=== PATIENT | female | born 1995 | race Two or more races ===

== ENCOUNTER 2018-09-17 20:49 | Emergency (ER) | payer SELFPAY ==
[~2018-09-17] VITALS: Ht 167.6 cm; Wt 63.5 kg
[2018-09-17] MEDS ORDERED: MIDAZOLAM HCL 5 MG/5ML VIAL IV ONE (21:00)
[2018-09-17] MEDS ORDERED: FENTANYL PF 100MCG/2ML AMPUL IV ONE (21:00)
--- NOTE | 2018-09-17 21:00 | NUR ---
PT MAE C/C CANT CLOSE MOUTH S/P YAWNING 15 MIN AGO. PT AOX4. MOUTH OPEN AND UNABLE TO VLOSE. PT ON MONITOR IN BED 3 WITH FRIEND AT BEDSIDE. WILL COTNINUE TO MONITOR.
[2018-09-17] MEDS ORDERED: FENTANYL PF 100MCG/2ML AMPUL ONE (21:24)
--- NOTE | 2018-09-17 21:25 | NUR ---
PT TAKEN TO RADIOLOGY VIA WHEELCHAIR
[2018-09-17] MEDS ORDERED: MIDAZOLAM 50 MG/10 ML VIAL ONE (21:29)
[2018-09-17 21:59] VITALS: BP 131/80
--- NOTE | 2018-09-17 22:36 | NUR ---
IV removed. Catheter intact and site benign. Pressure and 4x4 applied to site. No bleeding noted.Patient discharged to home in stable condition. Written and verbal after care instructions given. Patient verbalizes understanding of instruction. PT AMBUALTORY WITH STEADY GAIT ACCOMPANIED BY FAMILY.
== END 2018-09-17 22:36 | disposition home or self-care (01) ==
LOC: ER 20:49
DX: S03.00XA Dislocation of jaw, unspecified side, initial encounter (principal); X58.XXXA Exposure to other specified factors, initial encounter; Y93.89 Activity, other specified; Y92.89 Other specified places as the place of occurrence of the external cause; Y99.8 Other external cause status
CPT/HCPCS: 21480; 70110; 99284; J2250; J3010

== ENCOUNTER 2020-03-16 23:20 | Emergency (ER) | payer OTHER ==
[~2020-03-16] VITALS: Ht 167.6 cm; Wt 63.5 kg
--- NOTE | 2020-03-16 23:29 | NUR ---
PT AAOX4. AMBULATORY WITH STEADY GAIT. BIBSELF C/O GEN ABD PAIN X2 WEEKS. PT STATED SHE TESTED POSITIVE FOR COVID X3 WEEKS AGO. DURING COVID SHE HAD THE SAME GEN ABD PAIN. STATED 5/10 PAIN NOW AND "IT WILL GET WORSE AT 3 AM, SO I WANTED TO BE CHECKED OUT NOW"
--- NOTE | 2020-03-16 23:59 | NUR ---
URINE COLLECTED, SENT TO LAB.
[2020-03-17] MEDS ORDERED: DEXAMETHASONE SOD PHOSPHATE 6 MG in IV D5W 50 ML IV STA (00:10)
[2020-03-17 00:30] LABS: BASOPHILS % (AUTO) 0.5 % (0.0-2.0); EOSINOPHILS % (AUTO) 1.2 % (0.0-6.0); HEMATOCRIT 37 % (33-45); HEMOGLOBIN 12.6 g/dL (11.5-14.8); MEAN CORPUSCULAR HGB CONC 34 g/dl (31.0-36.0); MEAN CORPUSCULAR VOLUME 91 fL (82-100); MONOCYTES # (AUTO) 0.7 /CMM (0.1-1.30); NEUTROPHILS # (AUTO) 3.6 /CMM (1.8-8.9); NEUTROPHILS % (AUTO) 49.3 % (43.0-81.0); PLATELET COUNT (AUTO) 272 /CMM (150-450); RED BLOOD CELL COUNT(AUTO) 4.03 MIL/uL (4.0-5.2); WHITE BLOOD COUNT (AUTO) 7.4 K/uL (4.3-11.0)
[2020-03-17 00:47] LABS: CALCIUM, SERUM 8.8 mg/dL (8.5-10.1); CREATININE 0.8 mg/dL (0.6-1.3); POTASSIUM 3.9 mmol/L (3.5-5.1)
[2020-03-17 00:53] LABS: ALBUMIN 3.7 g/dL (3.4-5.0); BILIRUBIN,DIRECT 0.1 mg/dL (0.0-0.2); BILIRUBIN,TOTAL 0.3 mg/dL (0.2-1.0); TOTAL PROTEIN, SERUM 7.3 g/dL (6.4-8.2)
[2020-03-17 01:12] LABS: BILIRUBIN,URINE NEGATIVE (NEGATIVE); COLOR,URINE YELLOW (YELLOW); LEUKOCYTE ESTERASE ,URINE NEGATIVE (NEGATIVE); NITRITE, URINE NEGATIVE (NEGATIVE); PROTEIN,URINE TRACE mg/dl (NEGATIVE); UGLUCOSE NEGATIVE (NEGATIVE); UROBILINOGEN,URINE 0.2 EU/dL (0.2)
--- NOTE | 2020-03-17 01:35 | NUR ---
BROUGHT TO CT
[2020-03-17 01:57] LABS: BACTERIA,URINE None seen /HPF (None Seen); RBC,URINE 0-2 /HPF (0-2); SQUAMOUS EPITHELIAL CELL,UR Few /HPF (None Seen); WBC,URINE 0-2 /HPF (0-3)
[2020-03-17 01:58] LABS: MUCUS,URINE Few /LPF (None Seen)
--- NOTE | 2020-03-17 02:59 | NUR ---
IV removed. Catheter intact and site benign. Pressure and 4x4 applied to site. No bleeding noted. Patient discharged to home in stable condition. Written and verbal after care instructions given. Patient verbalizes understanding of instruction and RX.
[2020-03-17 03:09] VITALS: BP 129/64
== END 2020-03-17 03:09 | disposition home or self-care (01) ==
LOC: ER 23:22
DX: R10.84 Generalized abdominal pain (principal); Z98.82 Breast implant status; Z86.16 Personal history of COVID-19
CPT/HCPCS: 36415; 74176; 80048; 80076; 81001; 83690; 84702; 85025; 93005; 99285; C9803; U0003; J1100; J7060